=== PATIENT | female | born 1960 | race African-American/Black ===

== ENCOUNTER 2021-06-28 05:45 | Inpatient (IN) ==
[2021-06-28] MEDS ORDERED: fentaNYL 100 MCG/2 ML VIAL ONE ×2 (05:53→07:38)
[2021-06-28] MEDS ORDERED: MIDAZOLAM 2 MG/2 ML VIAL ONE (05:53)
[2021-06-28] MEDS ORDERED: propofoL 200 MG/20 ML VIAL IV ONE (05:54)
[2021-06-28] MEDS ORDERED: LIDOCAINE 2% 5 ML VIAL ONE (05:54)
[2021-06-28] MEDS ORDERED: ACETAMINOPHEN 500 MG TABLET PO ONE (06:00)
[2021-06-28] MEDS ORDERED: VANCOMYCIN INJ 1,000 MG in SODIUM CHLORIDE 0.9% 250 ML IV ONE (06:00)
[2021-06-28] MEDS ORDERED: GABAPENTIN 400 MG CAPSULE PO ONE (06:00)
[2021-06-28] MEDS ORDERED: FAMOTIDINE 20 MG TABLET PO ONE (06:00)
[2021-06-28] MEDS ORDERED: DEXAMETHASONE 4 MG/1 ML VIAL ONE ×2 (06:01→07:17)
[2021-06-28] MEDS ORDERED: ROPIVACAINE 0.5% 30 ML VIAL ONE (06:01)
[2021-06-28] MEDS ORDERED: LIDOCAINE 1% 5 ML VIAL ONE (06:01)
[2021-06-28] MEDS: LACTATED RINGERS 1,000 ML IV SCH (06:42)
[2021-06-28] MEDS ORDERED: BISACODYL 10 MG SUPP RECTAL PRN (07:08)
[2021-06-28] MEDS ORDERED: LACTULOSE 20 GM/30 ML UDCUP PO PRN (07:08)
[2021-06-28] MEDS ORDERED: PROMETHAZINE 25 MG/1 ML VIAL IM PRN (07:08)
[2021-06-28] MEDS ORDERED: TEMAZEPAM 7.5 MG CAPSULE PO PRN (07:08)
[2021-06-28] MEDS ORDERED: diphenhydrAMINE CAP 25 MG CAPSULE PO PRN (07:08)
[2021-06-28] MEDS ORDERED: ONDANSETRON 4 MG/2 ML VIAL IV PRN ×2 (07:08→08:45)
[2021-06-28] MEDS ORDERED: MAGNESIUM HYDROXIDE SUSP 30 ML UDCUP PO PRN (07:08)
[2021-06-28] MEDS ORDERED: MORPHINE 2 MG/1 ML SYRINGE IV PRN ×2 (07:08→08:26)
[2021-06-28] MEDS ORDERED: ACETAMINOPHEN 325 MG TABLET PO PRN (07:10)
[2021-06-28] MEDS ORDERED: MELOXICAM 7.5 MG TABLET PO PRN (07:10)
[2021-06-28] MEDS ORDERED: ONDANSETRON 4 MG/2 ML VIAL ONE (07:17)
[2021-06-28] MEDS ORDERED: TRANEXAMIC ACID 1,000 MG/10 ML VIAL ONE (07:17)
[2021-06-28] MEDS ORDERED: ROCURONIUM 50 MG/5 ML VIAL IV ONE (07:17)
[2021-06-28] MEDS ORDERED: PHENYLEPHRINE 10 MG/1 ML VIAL IV ONE (07:22)
[2021-06-28] MEDS ORDERED: KETOROLAC 30 MG/1 ML VIAL ONE (07:39)
[2021-06-28] MEDS ORDERED: ESMOLOL 100 MG/10 ML VIAL IV ONE (07:45)
[2021-06-28] MEDS ORDERED: GLYCOPYRROLATE 0.4 MG/2 ML VIAL ONE (08:03)
[2021-06-28] MEDS ORDERED: NEOSTIGMINE 10 MG/10 ML VIAL ONE (08:03)
[2021-06-28] MEDS ORDERED: MEPERIDINE 25 MG/1 ML VIAL IV PRN (08:45)
[2021-06-28] MEDS ORDERED: diphenhydrAMINE 50 MG/1 ML VIAL IV PRN (08:45)
[2021-06-28] MEDS ORDERED: PROMETHAZINE INJ 25 MG in SODIUM CHLORIDE 0.9% 50 ML IV PRN (08:45)
[2021-06-28] MEDS ORDERED: HYDROmorphone 2 MG/1 ML VIAL IV PRN (08:45)
[2021-06-28] MEDS ORDERED: SEVOFLURANE 1 UNIT/15 MINUTE INH ONE (10:18)
[2021-06-28] MEDS ORDERED: LACTATED RINGERS 1,000 ML IV ONE (10:19)
[2021-06-28] MEDS ORDERED: SODIUM CHLORIDE 0.9% 100 ML IV ONE (10:19)
[2021-06-28] MEDS: ceFAZolin 2,000 MG/50 ML DUPLEX IV SCH ×2 (13:28→21:29)
[2021-06-28] MEDS: DOCUSATE SODIUM 100 MG CAPSULE PO SCH (21:27)
[2021-06-28] MEDS: FONDAPARINUX 2.5 MG/0.5 ML SYRINGE SUBCUT SCH (21:28)
[2021-06-29 05:23] LABS: Basophils % 0.2 % (0.0-0.8); Hematocrit 32.3 VOL% (35.7-47.0); Immature Granulocytes % 0.3 %; Immature Granulocytes Absolute 0.03 #; Lymphocytes # 1.6 10*3/uL (1.4-4.0); Lymphocytes % 16.3 % (21.3-54.2); Mean Corpuscular Volume 93.9 FL (87-102); Mean Platelet Volume 9.9 FL (9.6-12.0); Monocytes % 10.2 % (1.7-12.7); Platelet Count 271 T/CUMM (130-400); Red Blood Count 3.44 MC/CUMM (3.8-5.5); Red Cell Distribution Width 14.7 % (9.3-17.3); White Blood Count 9.5 T/CUMM (4-12)
[2021-06-29 05:26] LABS: Calcium 8.7 MG/DL (8.5-10.1); Potassium 3.8 MMOL/L (3.5-5.1)
[2021-06-29] MEDS: LACTATED RINGERS 1,000 ML IV SCH ×2 (06:52→16:22)
[2021-06-29] MEDS: ASCORBIC ACID 500 MG TABLET PO SCH (08:18)
[2021-06-29] MEDS: DOCUSATE SODIUM 100 MG CAPSULE PO SCH ×2 (08:18→20:43)
[2021-06-29] MEDS: FONDAPARINUX 2.5 MG/0.5 ML SYRINGE SUBCUT SCH (20:43)
[2021-06-30] MEDS: LACTATED RINGERS 1,000 ML IV SCH (05:01)
[2021-06-30] MEDS: DOCUSATE SODIUM 100 MG CAPSULE PO SCH (08:43)
[2021-06-30] MEDS: ASCORBIC ACID 500 MG TABLET PO SCH (08:43)
[2021-06-30 11:29] VITALS: BP 148/83
== END 2021-06-30 13:35 | disposition home health service (06) | DRG 470 ==
LOC: N.OR 05:45 → N.SDSINP 05:49 → N.3E 11:46
PROVIDERS: ADMIT Orthopaedic Surgery; ATTEND Orthopaedic Surgery

== ENCOUNTER 2022-07-27 10:33 | Inpatient (IN) ==
[2022-07-27] MEDS ORDERED: ONDANSETRON 4 MG/2 ML VIAL IV PRN (16:03)
[2022-07-27] MEDS ORDERED: GLUCAGON 1 MG VIAL IM PRN (16:03)
[2022-07-27] MEDS ORDERED: DEXTROSE 10% 250 ML BAG IV PRN (16:03)
[2022-07-27] MEDS ORDERED: SODIUM CHLORIDE 0.9% 1,000 ML IV PRN (16:03)
[2022-07-27] MEDS ORDERED: MAGNESIUM SULF RIDER 2 GM/50 ML PREMIX IV ONE (16:08)
[2022-07-27 16:39] LABS: Hematocrit 22.5 VOL% (35.7-47.0); Hemoglobin 7.1 GM/DL (12.0-16.0); Immature Granulocytes % 0.5 %; Immature Granulocytes Absolute 0.01 #; Lymphocytes # 0.2 10*3/uL (1.4-4.0); Lymphocytes % 11.4 % (21.3-54.2); Mean Corpuscular HGB Conc 31.6 GM/DL (32-36); Mean Platelet Volume 8.9 FL (9.6-12.0); Monocytes # 0.2 10*3/uL (0.11-0.8); Monocytes % 9.5 % (1.7-12.7); Neutrophils % 78.6 % (38.7-73.9); Platelet Count 161 T/CUMM (130-400); Red Blood Count 2.42 MC/CUMM (3.8-5.5); Red Cell Distribution Width 17.8 % (9.3-17.3); White Blood Count 2.1 T/CUMM (4-12)
[2022-07-27 17:05] LABS: Alanine Aminotransferase 17 U/L (13-56); Albumin 2.4 G/DL (3.4-5.0); Alkaline Phosphatase 95 U/L (45-117); Aspartate Amino Transferase 12 U/L (0-37); Bilirubin,Total < 0.39 MG/DL (0.20-1.00); Blood Urea Nitrogen 13 MG/DL (7-18); Calcium 8.7 MG/DL (8.5-10.1); Carbon Dioxide 30 MMOL/L (21-32); Chloride 102 MMOL/L (98-107); Glucose 142 MG/DL (74-106); Osmolality,Calculated 276.7 MOS/KG (273-304); Sodium 138 MMOL/L (136-145); Total Protein 7.1 G/DL (6.4-8.2)
[2022-07-27 17:09] LABS: Potassium 2.5 MMOL/L (3.5-5.1)
[2022-07-27] MEDS: INSULIN REGULAR 100 UNIT/ML SUBCUT SCH ×2 (17:13→21:33)
[2022-07-27 17:43] LABS: Band Neutrophils 4 % (0-10); Lymphocytes 8 % (20-55); Platelet Estimate Adequate; Total Cells Counted 100
[2022-07-27 17:44] LABS: Hypochromia Slight
[2022-07-27] MEDS: POTASSIUM CHLORIDE 20 MEQ TABLET PO PRN ×2 (21:31→23:17)
[2022-07-27] MEDS: ACETAMINOPHEN 325 MG TABLET PO PRN (21:32)
[2022-07-28] MEDS: ACETAMINOPHEN 325 MG TABLET PO PRN ×2 (01:42→10:09)
[2022-07-28] MEDS: POTASSIUM CHLORIDE 20 MEQ TABLET PO PRN ×2 (01:42→04:23)
[2022-07-28 05:31] LABS: Basophils % 0.3 % (0.0-0.8); Hematocrit 20.8 VOL% (35.7-47.0); Hemoglobin 6.5 GM/DL (12.0-16.0); Immature Granulocytes % 0.6 %; Immature Granulocytes Absolute 0.02 #; Lymphocytes # 0.2 10*3/uL (1.4-4.0); Lymphocytes % 6.8 % (21.3-54.2); Mean Corpuscular HGB Conc 31.3 GM/DL (32-36); Mean Corpuscular Volume 92.9 FL (87-102); Mean Platelet Volume 8.9 FL (9.6-12.0); Monocytes # 0.4 10*3/uL (0.11-0.8); Monocytes % 12.4 % (1.7-12.7); Neutrophils % 79.9 % (38.7-73.9); Platelet Count 154 T/CUMM (130-400); Red Blood Count 2.24 MC/CUMM (3.8-5.5); Red Cell Distribution Width 18.2 % (9.3-17.3); White Blood Count 3.2 T/CUMM (4-12)
[2022-07-28 05:57] LABS: Alanine Aminotransferase 17 U/L (13-56); Albumin 2.4 G/DL (3.4-5.0); Alkaline Phosphatase 100 U/L (45-117); Aspartate Amino Transferase 13 U/L (0-37); Bilirubin,Total < 0.39 MG/DL (0.20-1.00); Blood Urea Nitrogen 11 MG/DL (7-18); Calcium 8.7 MG/DL (8.5-10.1); Carbon Dioxide 29 MMOL/L (21-32); Chloride 99 MMOL/L (98-107); Glucose 148 MG/DL (74-106); Osmolality,Calculated 274.8 MOS/KG (273-304); Potassium 2.7 MMOL/L (3.5-5.1); Sodium 137 MMOL/L (136-145); Total Protein 6.9 G/DL (6.4-8.2)
[2022-07-28 06:00] LABS: Band Neutrophils 11 % (0-10); Lymphocytes 8 % (20-55); Total Cells Counted 100
[2022-07-28 06:01] LABS: Microcytosis 1+
[2022-07-28 06:02] LABS: Hypochromia 1+
[2022-07-28] MEDS ORDERED: POTASSIUM CHLORIDE 20 MEQ TABLET PO ONE (07:42)
[2022-07-28] MEDS: INSULIN REGULAR 100 UNIT/ML SUBCUT SCH ×4 (07:52→22:41)
[2022-07-28] MEDS ORDERED: PANTOPRAZOLE 40 MG TABLET PO SCH (09:00)
[2022-07-28] MEDS: PANTOPRAZOLE 40 MG TABLET PO SCH ×2 (09:32→22:40)
[2022-07-28] MEDS: POTASSIUM CHLORIDE 20 MEQ TABLET PO SCH ×3 (10:10→22:40)
[2022-07-28 10:48] LABS: Folate 8.22 NG/ML (5.38-24.0); Vitamin B12 227 PG/ML (211-911)
[2022-07-28] MEDS ORDERED: INFLUENZA VIRUS VACCINE 0.5 ML SYRINGE IM ONE (14:19)
[2022-07-28] MEDS: CYANOCOBALAMIN 1000 MCG/1 ML VIAL SUBCUT SCH (14:45)
[2022-07-28 15:56] LABS: Basophils % 0.6 % (0.0-0.8); Hematocrit 28.3 VOL% (35.7-47.0); Hemoglobin 9.3 GM/DL (12.0-16.0); Immature Granulocytes % 2.4 %; Immature Granulocytes Absolute 0.08 #; Lymphocytes # 0.2 10*3/uL (1.4-4.0); Mean Corpuscular HGB Conc 32.9 GM/DL (32-36); Mean Corpuscular Volume 89.3 FL (87-102); Mean Platelet Volume 8.9 FL (9.6-12.0); Monocytes # 0.2 10*3/uL (0.11-0.8); Platelet Count 154 T/CUMM (130-400); Red Blood Count 3.17 MC/CUMM (3.8-5.5); Red Cell Distribution Width 16.7 % (9.3-17.3); White Blood Count 3.3 T/CUMM (4-12)
[2022-07-28 16:15] LABS: % Iron Saturation 32.2 % (18-50)
[2022-07-28 17:00] LABS: Sedimentation Rate-Westergren 97 MM/HR (0-30)
[2022-07-28 18:11] LABS: Band Neutrophils 5 % (0-10); Lymphocytes 4 % (20-55); Platelet Estimate Adequate; Total Cells Counted 100
[2022-07-28 18:12] LABS: Hypochromia Slight
[2022-07-29 04:58] LABS: Basophils % 0.6 % (0.0-0.8); Hematocrit 27.8 VOL% (35.7-47.0); Hemoglobin 9.1 GM/DL (12.0-16.0); Immature Granulocytes % 1.5 %; Immature Granulocytes Absolute 0.05 #; Lymphocytes # 0.2 10*3/uL (1.4-4.0); Lymphocytes % 6.8 % (21.3-54.2); Mean Corpuscular HGB Conc 32.7 GM/DL (32-36); Mean Corpuscular Volume 90.6 FL (87-102); Mean Platelet Volume 9.2 FL (9.6-12.0); Monocytes # 0.3 10*3/uL (0.11-0.8); Monocytes % 9.7 % (1.7-12.7); Neutrophils % 81.4 % (38.7-73.9); Platelet Count 164 T/CUMM (130-400); Red Blood Count 3.07 MC/CUMM (3.8-5.5); Red Cell Distribution Width 17.2 % (9.3-17.3); White Blood Count 3.4 T/CUMM (4-12)
[2022-07-29 05:30] LABS: Calcium 8.9 MG/DL (8.5-10.1); Osmolality,Calculated 278.4 MOS/KG (273-304); Potassium 3.8 MMOL/L (3.5-5.1)
[2022-07-29 05:36] LABS: Band Neutrophils 28 % (0-10); Lymphocytes 8 % (20-55); Nucleated Red Blood Cells 1 /100 WBC (0-5); Platelet Estimate Normal; Total Cells Counted 100
[2022-07-29 05:37] LABS: Anisocytosis Slight; Hypochromia Slight; Macrocytosis Slight
[2022-07-29] MEDS: INSULIN REGULAR 100 UNIT/ML SUBCUT SCH ×2 (07:55→12:21)
[2022-07-29] MEDS: POTASSIUM CHLORIDE 20 MEQ TABLET PO SCH (09:37)
[2022-07-29] MEDS: PANTOPRAZOLE 40 MG TABLET PO SCH (09:38)
[2022-07-29] MEDS: CYANOCOBALAMIN 1000 MCG/1 ML VIAL SUBCUT SCH (09:38)
[2022-07-29 12:52] VITALS: BP 136/86
[2022-07-29] MEDS ORDERED: MAGNESIUM OXIDE 400 MG TABLET PO SCH (21:00)
[2022-07-31 08:48] LABS: Hemoglobin A1 (Alkaline) 97.4 % (96.5-98.5); Hemoglobin A2 (Alkaline) 2.6 % (1.5-3.5)
== END 2022-07-29 12:16 | disposition home or self-care (01) | DRG 812 ==
LOC: N.TELES → SUATTDRO 11:34
PROVIDERS: ADMIT Internal Medicine; ATTEND Emergency Medicine